=== PATIENT | female | born 1970 | race Caucasian/White ===

== ENCOUNTER 2022-11-30 05:12 | Outpatient (CLI) | payer MEDICAID | END 2022-11-30 05:13 | disposition critical access hospital (66) | LOC: EMS 05:12 | DX: R42 Dizziness and giddiness (principal); R11.2 Nausea with vomiting, unspecified; R47.89 Other speech disturbances | CPT/HCPCS: A0425; A0429; A0999 ==

== ENCOUNTER 2022-11-30 05:29 | Emergency (ER) | payer MEDICAID ==
[2022-11-30] MEDS ORDERED: SODIUM CHLORIDE 0.9% 1,000 ML IV STA (05:58)
--- NOTE | 2022-11-30 06:01 | ED Physician Documentation ---
PD HPI ALTERED MENTAL STATUS - Stated complaint Stated Complaint: DIZZINESS/VOMITING - Chief complaint Chief Complaint: Neuro - History obtained from History obtained from: Patient - History of Present Illness Timing - onset: Today Timing - duration: Hours Timing - details: Abrupt onset, Still present Quality / character: Other (difficulty getting words out) Associated symptoms: NVD, General weakness. No: Fever, Headache, Stiff neck, Dyspnea, Cough, Urinary sx, Focal weakness, Seizure activity, Syncope Contributing factors: Cancer Basline status: Alert and oriented X 3, Ambulatory, Independent Similar symptoms before: Has not had sx before Recently seen: Other (had thoracentesis yesterday at [facility]) - Additional information Additional information: 52-year-old Yohana Smith has a history of breast cancer diagnosed in October of last year. She has undergone 33 rounds of chemotherapy, radiation therapy and mastectomy. She is on anastrozole. 2 weeks ago she developed dyspnea and required a thoracentesis. They took off 650 mL. Yesterday she had a second thoracentesis taking off 1200 mL. This morning she is awakened with a staccato like speech pattern that she is making an effort to get out. She is dizzy, lightheaded and has had nausea and vomiting all today. She walked to the ambulance with assistance. She was last known normal seen by her last night before going to bed. Review of Systems Constitutional: denies: Fever Eyes: denies: Decreased vision Ears: denies: Ear pain Nose: denies: Rhinorrhea / runny nose, Congestion Throat: denies: Sore throat Cardiac: denies: Chest pain / pressure, Palpitations Respiratory: denies: Dyspnea, Cough GI: reports: Nausea, Vomiting. denies: Abdominal Pain : denies: Dysuria, Frequency Skin: denies: Rash Musculoskeletal: denies: Neck pain, Back pain, Extremity pain Neurologic: reports: Generalized weakness, Numbness (to the face), Difficulty speaking, Near syncope, Altered mental status. denies: Focal weakness PD PAST MEDICAL HISTORY - Present Medications Home Medications: Ambulatory Orders Medication Instructions Recorded Confirmed Anastrozole 1 mg PO DAILY 11/30/22 11/30/22 Loratadine [All Day Allergy Relief] 10 mg PO DAILY 11/30/22 11/30/22 - Allergies Allergies/Adverse Reactions: Allergies Allergy/AdvReac Type Severity Reaction Status Date / Time chlorhexidine Allergy Hives Verified 11/30/22 05:57 [From ChloraPrep Clear] isopropyl alcohol Allergy Hives Verified 11/30/22 05:57 [From ChloraPrep Clear] Sulfa (Sulfonamide Allergy Hives Verified 11/30/22 05:57 Antibiotics) PD ED PE NORMAL - Vitals Vital signs reviewed: Yes (normal ) - General General: No acute distress, Well developed/nourished, Other (The patient is awake and interactive. She is making an effort to speak and speaks one word at a time. She is pale .) - HEENT HEENT: Atraumatic, PERRL, EOMI (with 3 beats of nystagmus to the right and 2 to the left) - Neck Neck: Supple, no meningeal sign, No bony TTP - Cardiac Cardiac: RRR, No murmur - Respiratory Respiratory: No respiratory distress, Other (diminished breath sounds in the right base ) - Abdomen Abdomen: Soft, Non tender - Back Back: No CVA TTP, No spinal TTP - Derm Derm: Normal color, Warm and dry, Other (pale ) - Extremities Extremities: No deformity, No edema - Neuro Neuro: Alert and oriented X 3, vice president of academic affairs 2-12 intact, No motor deficit, No sensory deficit, Other (speech is halting, slow but with good content) Eye Opening: Spontaneous Motor: Obeys Commands Verbal: Oriented GCS Score: 15 - Psych Psych: Normal mood, Normal affect NIHSS - Time Time: 06:00 - Level of Consciousness Level of consciousness: (0) Alert, Keenly responsive LOC Questions: (0) Answers both Q's correct LOC Commands: (0) Performs both correctly - Gaze Best Gaze: (0) Normal - Visual Visual: (0) No loss - Facial Palsy Facial Palsy: (0) Normal, symmetrical movement - Motor Arms (both separate) Motor Arm (right): (0) No drift Motor Arm (left): (0) No drift - Motor Legs (both separate) Motor Leg (right): (0) No drift Motor Leg (left): (0) No drift - Limb Ataxia Limb Ataxia: (0) Absent - Sensory Sensory: (0) Normal - Best Language Best Language: (1) [id number] - Dysarthria Dysarthria: (0) Normal - Extinction and Inattention (formally neg Extinction and inattention: (0) No abnormality - Total Score/Results Total Score/Result: 1 Results - Vitals Vitals: Vital Signs - 24 hr 11/30/22 11/30/22 05:43 05:45 Temperature 36.6 C Heart Rate 69 69 Respiratory 15 18 Rate Blood Pressure 96/70 96/70 O2 Saturation 94 91 L Oxygen O2 Source Room air Oxygen Flow Rate 2 - EKG (time done) 0604 Rate: Rate (enter#) (65) Rhythm: NSR Ischemia: Normal ST segments Compare to prior EKG: Old EKG unavailable Computer interpretation: Agree with computer - Labs Labs: Laboratory Tests 11/30/22 11/30/22 11/30/22 05:48 05:48 06:03 WBC 7.9 RBC 4.00 L Hgb 10.8 L Hct 32.7 L MCV 81.8 MCH 27.0 MCHC 33.0 RDW 12.1 Plt Count 404 MPV 8.5 Neut # (Auto) 6.2 Lymph # (Auto) 0.8 L Bailey # (Auto) 0.7 Eos # (Auto) 0.1 Baso # (Auto) 0.0 Absolute Nucleated RBC 0.00 Nucleated RBC % 0.0 PT 13.5 H INR 1.2 APTT 24.7 L Sodium 130 L Potassium 3.6 Chloride 95 L Carbon Dioxide 24 Anion Gap 11.0 BUN 14 Creatinine 0.7 Estimated GFR (MDRD) 87 L Glucose 122 H Calcium 8.3 L Total Bilirubin 0.8 AST 22 ALT 16 Alkaline Phosphatase 58 Total Protein 6.9 Albumin 2.7 L Globulin 4.2 Albumin/Globulin Ratio 0.6 L Lipase 28 - Rads (name of study) head without Radiology: Prelim report reviewed (unremarkable head CT), EMP read indepedently, See rad report chest Radiology: Prelim report reviewed (Impression: Large right pleural effusion.), EMP read indepedently, See rad report Procedures - IVC sono (time) 0555 Bedside IVC sono: IVC measures (cm) (0.79), IVC collapsed c insp (cm) (complete), Dehydration (est 2+ liter deficit) PD Medical Decision Making - ED course Complexity details: reviewed results, re-evaluated patient, considered differential, d/w patient, d/w family ED course: 52-year-old female with an impressive breast cancer is undergoing treatment for a year and had some improvement and over the past 2 weeks has developed a pleural effusion on the right side she has had 2 thoracenteses. She had thoracentesis done yesterday at [facility]. This morning she is awake and with excessive speech latency but with fair content. She is moving slowly with delay in execution of motor commands. I considered stroke or new met to the brain to be a possibility for this patient and obtained a noncontrast CT scan of the head which did not demonstrate any evidence of bleed or mass. I evaluated the patient at the bedside with POCUS and found her to be significantly dehydrated and provided intravenous hydration. The patient appears to responded to the hydration. Her speech pattern has fluency. The breaks between words are shorter. I suspect the awakening this morning was related to redistribution dehydration. I have discussed this with the patient and her supportive . The expectation being continued problems with the pleural effusion but not a brain met, bleed or stroke. They have direct access to get thoracentesis done at [facility] as needed. Her symptoms of pain in the apex of the lung and dyspnea are gone. The effusion is large . Departure - Departure Clinical Impression: Dehydration, Pleural effusion on right Condition: Stable Instructions: ED Dehydration, ED Effusion Pleural Follow-Up: Oncology, doctor [Other] Comments: Yohana, today it looks like you have had significant dehydration related to redistribution of after pleural effusion was drained yesterday. Our expectation is for your speech to be back to normal today but I do expect you will continue to have some problem with your pleural effusion and will likely require another drainage relatively soon.
[2022-11-30 06:03] LABS: BASOPHILS % (AUTO) 0.5 %; EOSINOPHILS # (AUTO) 0.1 10^3/uL (0.0-0.7); EOSINOPHILS % (AUTO) 1.3 %; HCT - HEMATOCRIT 32.7 % (37.0-47.0); HGB - HEMOGLOBIN 10.8 g/dL (12.0-16.0); LYMPHOCYTES # (AUTO) 0.8 10^3/uL (1.5-3.5); LYMPHOCYTES % (AUTO) 10.6 %; MEAN CORPUSCULAR VOLUME 81.8 fL (81.0-99.0); MEAN PLATELET VOLUME 8.5 fL (7.9-10.8); MONOCYTES # (AUTO) 0.7 10^3/uL (0.0-1.0); MONOCYTES % (AUTO) 8.4 %; NEUTROPHILS # (AUTO) 6.2 10^3/uL (1.5-6.6); NEUTROPHILS % (AUTO) 78.3 %; PLT - PLATELET COUNT 404 10^3/uL (130-450); RED CELL DISTRIBUTION WIDTH 12.1 % (12.0-15.0); WHITE BLOOD COUNT 7.9 x10^3/uL (4.8-10.8)
[2022-11-30 06:15] LABS: ALBUMIN 2.7 g/dL (3.2-5.5); ALBUMIN/GLOBULIN RATIO 0.6 (1.0-2.2); BILIRUBIN,TOTAL 0.8 mg/dL (0.2-1.0); CALCIUM 8.3 mg/dL (8.5-10.3); CREATININE 0.7 mg/dL (0.4-1.0); POTASSIUM 3.6 mmol/L (3.5-5.0); TOTAL PROTEIN 6.9 g/dL (6.7-8.2)
[2022-11-30 06:17] LABS: INR 1.2 (0.8-1.2); PT - PROTHROMBIN TIME 13.5 secs (9.9-12.6)
[2022-11-30 06:24] LABS: PARTIAL THROMBOPLASTIN TIME 24.7 secs (24.9-33.3)
[2022-11-30] MEDS ORDERED: SODIUM CHLORIDE 0.9% 300 ML IV STA (07:10)
--- NOTE | 2022-11-30 07:41 | XRAY Report ---
PROCEDURE: Chest 1 View X-Ray INDICATIONS: right pleural effusion TECHNIQUE: One view of the chest was acquired. COMPARISON: None. FINDINGS: Surgical changes and devices: Bilateral axillary clips and clips projecting over the mid chest Lungs and pleura: Large right pleural effusion. Adjacent airspace opacities within the aerated right lung may represent atelectasis. No pneumothorax visualized. Mediastinum: Cardiac silhouette partially obscured, likely upper limit of normal in size. Bones and chest wall: No suspicious bony lesions. Overlying soft tissues appear unremarkable. IMPRESSION: Large right pleural effusion. This report is concordant with the preliminary report. Reviewed by: Jamie Rose MD on 11/30/2022 7:40 AM [facility] Approved by: Jamie Rose MD on 11/30/2022 7:40 AM [facility] Station ID: [id number]
[2022-11-30 07:44] VITALS: BP 93/61
--- NOTE | 2022-11-30 07:48 | CT Report ---
PROCEDURE: Head W/O Stroke Protocol INDICATIONS: dizziness/nausea expressive aphasia TECHNIQUE: Noncontrast 4.5 mm thick angled axial sections acquired from the foramen magnum to the vertex, with c oronal reformats. For radiation dose reduction, the following was used: automated exposure control, adjustment of mA and/or kV according to patient size. COMPARISON: FINDINGS: Image quality: Excellent. CSF spaces: Basal cisterns are patent. No extra-axial fluid collections. Ventricles are normal in size and shape. Brain: No midline shift. No intracranial masses or hemorrhage. Wong-white matter interface is norm al. Skull and face: Calvarium and visualized facial bones are intact, without suspicious lesions. Sinuses: Mucous retention cyst or polyp right maxillary sinus. IMPRESSION: No intracranial hemorrhage or other acute intracranial abnormality. This report is concordant with the preliminary report. This study fulfills neurological imaging criteria for inclusion or exclusion of acute stroke therapie s based on available published neurological imaging guidelines. Reviewed by: Jamie Rose MD on 11/30/2022 7:46 AM PST Approved by: Jamie Rose MD on 11/30/2022 7:46 AM PST Station ID: [id number]
== END 2022-11-30 08:02 | disposition home or self-care (01) ==
LOC: ED 05:29
DX: E86.0 Dehydration (principal); J90 Pleural effusion, not elsewhere classified
CPT/HCPCS: 36415; 80053; 83690; 85025; 85610; 85730; 93005; 96360; 99284